=== PATIENT | female | born 1985 | race Caucasian/White ===

== ENCOUNTER 2018-08-31 06:00 | Inpatient (IN) ==
[2018-08-31] MEDS ORDERED: *HR* Nalbuphine 10 MG/ML AMPUL IVP PRN (06:17)
[2018-08-31] MEDS ORDERED: Naloxone 0.4 MG/ML INJ IVP PRN ×2 (06:17→21:40)
[2018-08-31] MEDS ORDERED: Famotidine 20 MG/2 ML VIAL IVP PRN (06:17)
[2018-08-31] MEDS ORDERED: Lidocaine 1% 20 ML MDV INFILT PRN (06:17)
[2018-08-31] MEDS ORDERED: Metoclopramide 10 MG/2 ML VIAL IVP PRN ×3 (06:17→21:40)
[2018-08-31] MEDS ORDERED: Ondansetron 4 MG/2 ML VIAL IVP PRN ×3 (06:17→21:40)
[2018-08-31] MEDS ORDERED: Oxytocin 20 units/ LR 1000 mL 20 UNIT/1,000 ML BAG IVC SCH ×5 (06:30→21:40)
[2018-08-31] MEDS ORDERED: Penicillin G Potassium 5,000,000 UNIT in 0.9 % Sodium Chloride Mini Bag 100 ML IVPB ONE (06:35)
[2018-08-31 06:45] LABS: Basophils % 0.3 %; Eosinophils # 0.1 K/mcL (0.0-0.6); Eosinophils % 1.2 %; Hematocrit 39.5 % (35.3-44.9); Hemoglobin 13.2 g/dL (11.5-15.4); Immature Granulocytes % 0.7 % (0-4); Lymphocytes # 1.8 K/mcL (0.6-4.6); Lymphocytes % 17.7 %; Mean Corpuscular HGB Conc 33.4 g/dL (31.6-35.5); Mean Corpuscular Hemoglobin 29.4 pg (28.0-33.3); Monocytes # 0.7 K/mcL (0.0-1.3); Monocytes % 6.5 %; Neutrophils # 7.7 K/mcL (1.6-8.9); Platelet Count 247 K/mcL (140-400); Red Blood Count 4.49 M/mcL (3.82-4.97); Red Cell Distribution Width 14.1 % (11.5-14.5); Segmented Neutrophils % 73.6 %
[2018-08-31 06:54] LABS: Amphetamine Screen,Urine Negative ng/mL (Cutoff=1000); Barbiturate Screen,Urine Negative ng/mL (Cutoff=200)
[2018-08-31] MEDS: Ringers Solution, Lactated 1,000 ML IVC SCH ×2 (06:54→11:46)
[2018-08-31 06:55] LABS: Cannabinoid Screen,Urine Negative ng/mL (Cutoff = 50); Cocaine Screen,Urine Negative ng/mL (Cutoff= 300); Opiate Screen,Urine Negative ng/mL (Cutoff=300); Phencyclidine Screen,Urine Negative ng/mL (Cutoff=25)
--- NOTE | 2018-08-31 07:13 | OB Labor Progress Note ---
Date of Encounter: 08/31/18 Time of Encounter: 07:11 Labor Progress Note - Subjective Subjective: Pt denies complaints. - Cervix Cervix: 2-3/70/-2 - Heart Tones Heart Tones: Category II, Prolonged deceleration noted while pt supine for santa balloon placement. - Maize Maize: rare UC - Interventions Interventions: Santa balloon placed in cervix using sterile technique. Balloon inflated with 60ml sterile water. Pt tolerated well. - Plan Physician notified: Yes Physician notified details: Dr. Camarillo notified of SVE, santa placement, and prolonged deceleration Plan: Pitocin with santa for induction. Epidural when requested. Anticipate .
[2018-08-31] MEDS ORDERED: Epidural Premix (fent/bupiv) 110 ML EP ONE (10:52)
[2018-08-31] MEDS ORDERED: *HR* Ropivacaine/PF 0.2% 20 ML VIAL ONE (10:53)
[2018-08-31] MEDS ORDERED: *HR* FentaNYL (PF) 100 MCG/2 ML VIAL ONE (10:53)
[2018-08-31] MEDS ORDERED: Lidocaine -MPF 1% 5 ML AMPUL ONE (10:53)
[2018-08-31] MEDS ORDERED: Penicillin G Potassium 2,500,000 UNIT in 0.9 % Sodium Chloride 100 ML IVPB SCH (11:00)
[2018-08-31] MEDS ORDERED: EPHEDrine 50 MG/ML VIAL ONE (11:33)
--- NOTE | 2018-08-31 11:41 | Anesthesia Evaluation PreOp ---
Date of Encounter: 08/31/18 Time of Encounter: 11:38 - Past History Planned Operation: trevon Cardiac History: Other (neurocardiogenic syncope) Pulmonary History: Asthma (Allergy induced asthma) RETAIL LOAN OFFICER History: Denies Any Significant HX Other Medical History: Denies Any Significant HX Anesthesia History: No Prior Anesthetic Complications, Past Anesthesia (nasal septum repair) : Yes (39 weeks, ) Alcohol Use: none Drug use: none Medications and Allergies Metformin HCl 500 mg PO DAILY 06/11/18 [History] Prenata Chewable Tablet 1 tab PO DAILY 06/11/18 [History] Prozac 80 mg PO DAILY 06/11/18 [History] Allergy/AdvReac Type Severity Reaction Status Date / Time No Known Allergies Allergy Verified 08/31/18 06:15 - Meds/Allergy Pre-op Review Medications Reviewed: Yes Allergies Reviewed: Yes Beta Blockers on Current Med List: No Anesthesia Results - Labs 08/31/18 06:30 Anesthesia Exam No Known Allergies Allergy (Verified 08/31/18 06:15) Height: 69 Weight: 115 - HEENT Pupil (Motor): Pupils equal Mallampati: I Teeth: Normal Oral Opening: Greater than 3 - RETAIL LOAN OFFICER LOC: Oriented RETAIL LOAN OFFICER Motor: Normal RUE, Normal LUE, Normal RLE, Normal LLE, Normal Face [employer]AIL LO[employer] OFFICER Sensory: Normal: RUE, LUE, RLE, LLE, Face - Cardiac Rhythm: Regular Murmur: None JVD: No Carotid Bruit: No - Pulmonary Breath Sounds: bilateral Clear Respiratory Effort: Symmetrical Anesthesia Assess/Plan ASA Score: 2 Level of consciousness: Cooperative Anesthetic Plan: Epidural Monitoring Plan: Standard Monitors
--- NOTE | 2018-08-31 11:52 | Anesthesia Procedures ---
<Waylon Wills - Last Filed: 08/31/18 11:47> Date of Encounter: 08/31/18 Time of Encounter: 11:47 Procedures: Anesthesia - Epidural/Spinal Patient ID/Chart reviewed: Yes Patient examined: Yes OB Eval: Gestational age: 39 weeks OB Eval: : 3 OB Eval: Hx Para: 1 OB Eval: Contractions: Non-stressed pattern Consent Obtained: Yes Supplemental Oxygen: None/Room Air Site Prep: Aseptic Technique Patient position: upright Local Anesthetic: Lidocaine 1% Amount of Local Anesthetic used: 2 Touhy Needle Gauge: 18 Touhy Needle Depth (cm): 6 Catheter Depth at Skin (cm): 12 Test Dose (1.5% Lido + Epi): Volume given (mls): 3 Test Dose Result: Negative Loading Dose: Fentanyl (mcg): 100 Loading Dose: Other: 2ml fentanyl, 3ml nss Loading Dose Administered: Thru Touhy Needle Infusion Med: 0.125% Bupivacaine w/ 2 mcg/ml Fentanyl Infusion Rate (mls/hr): [address]: Tegaderm Interspace Used: L3-L4 Loss of Resistance (ESA): Yes Blood: No CSF: No Paresthesia: No Procedure: Strict asepsis, one attempt side lying at L3-4. Good ESA, negative parasthesias, negative heme, negative CSF. Catheter to 12cm and secured at skin. Called back 10 min after placing epidural to treat BP 104/68 with intense nausea and light headedness. 10mg ephedrine given ivp. Symptoms immediatly resolved and BP 144/87 <Ricci Jessica - Last Filed: 08/31/18 20:54> Date of Encounter: 08/31/18
[2018-08-31] MEDS ORDERED: *HR* FentaNYL (PF) 100 MCG/2 ML VIAL EP ONE (11:53)
[2018-08-31] MEDS ORDERED: Epidural Premix (fent/bupiv) 110 ML EP SCH (12:00)
--- NOTE | 2018-08-31 12:19 | OB/GYN History & Physical ---
Date of Encounter: 08/31/18 Time of Encounter: 12:19 Assessment and Plan (1) Labor established Current visit: Yes Status: Acute Induction of labor at term Labs- CBC, hold to collect Pain management with epidural CEFM Anticipate (2) Positive GBS test Current visit: Yes Status: Acute (3) Intrauterine Current visit: Yes Status: Acute (4) 39 weeks gestation of Current visit: Yes Status: Acute Prophylaxis penicillin History of Present Illness Chief complaint: Labor Induction HPI: Ms. Baum is a 33 year old female arrives at 39 weeks to L&D for induction. The patient has had no complications during . GBS positive. Patient with medical History of Neurogenic syncope. Denies any complaints at this time. Past Med Surg Social Fam HX - Past Medical History Attestation: Yes The following information was validated with the patient. Source: patient Medical history: other Additional medical history: cardiac issue-neurocardiogenic syncope Psychiatric history: depression, other - Past Surgical History Surgical History: non-contributory Additional surgical history: cyst removal to wrist, deviated septum repair - Social History Smoking Status: Never smoker Smokeless Tobacco Status: No Alcohol use: none Drug use: none - Family History Mother Living Status: Still Living Hx Family Cardiac Disorders: Yes (pulmonary embolisms, DVT,) Hx Family Cancer: Yes (melanoma) Hx Family Medical Disorders: Yes (clotting discorder) Obstetrical History - Pregnancies : 3 Para: 1 Term: 1 Ab's: 1 Livin - History/Complications History/Complications: GBS positive Medications and Allergies Metformin HCl 500 mg PO DAILY 06/11/18 [History] Prenata Chewable Tablet 1 tab PO DAILY 06/11/18 [History] Prozac 80 mg PO DAILY 06/11/18 [History] Allergy/AdvReac Type Severity Reaction Status Date / Time No Known Allergies Allergy Verified 08/31/18 06:15 Review of System OB All systems PM: reviewed and no additional remarkable complaints except as stated - Cardiovascular Cardiovascular: no chest pain - Respiratory Respiratory: no dyspnea - Genitourinary Genitourinary: no pelvic pain, no urinary frequency, no urinary urgency, no vaginal discharge - Neurological Nerological: no dizziness, no headache(s), no loss of vision, no syncope Exam - Constitutional Constitutional: well developed, well nourished, no acute distress, average body habitus - HEENT HEENT: PERRL - Neck Neck exam: full ROM - Lungs Respiratory exam: CTAB - Cardiovascular Cardiovascular exam: RRR - Abdomen Abdomen: Present: gravid, non tender - Extremities Extremities exam: full ROM - Vulva Vulva: bilateral: normal - Vagina Vagina: Present: normal moisture. Absent: discharge - Cervix Dilation: 5 Effacement: 80 Station: -2 - Uterus Uterus exam: Present: enlarged (appropriate for gestational age), normal contour - Anus/Rectum Anus/Rectum: Present: normal perianal skin Results Result Diagrams: 08/31/18 06:30 Abnormal lab results U Benzodiazepines Scrn Positive ng/mL (Mdyagw=[id number]) H 08/31/18 06:40 All other labs normal. - VTE Reasons for not Prescribing Prophylaxis: Treatment not Indicated - Low risk for VTE
--- NOTE | 2018-08-31 13:02 | Event Note ---
Date of Encounter: 08/31/18 Time of Encounter: 12:59 S/P epidural placement fetus experienced several variable and other decelerations despite interventions of position change, bolus, and pitocin off. Persistent category II tracing. Dr. Camarillo notified and orders to AROM and place internal monitors given. AROM with thick meconium fluid performed and IUPC and FSE placed. Dr. Camarillo notified that there was no improvement in tracing. States she is en route to assume care.
[2018-08-31] MEDS ORDERED: 0.9 % Sodium Chloride 500 ML ONE ×2 (13:09→14:59)
--- NOTE | 2018-08-31 13:40 | Event Note ---
Date of Encounter: 08/31/18 Time of Encounter: 13:36 Called to see patient at bedside. Marked variability appreciated on EFM, AROM'd by Mana DA SILVA for thick meconium. Denies si/sx of chorioamnionitis. Internal monitors were placed, and there was improvement in the patients tracing. EFM still tachy to the 180s, variability but unable to appreciate isolated deceleration(S) or acceleration(s). Audibly active fetus. Amnioinfusion was initiated 500cc bolus. Patient was rechecked and found to be a parous 8cm/80/-1. Thick meconium was appreciated with fluid. Appreciated head descend and I manually dilated cervix. Significant improvement in patient EFM. Baseline change from 170bpm to 130bpm with accels and mod variability. Will continue with EFM and internal monitors. Will restart IV pitocin when able. MD ADDISON
[2018-08-31] MEDS ORDERED: Metoclopramide 10 MG/2 ML VIAL IVP ONE (15:53)
[2018-08-31] MEDS ORDERED: Oxytocin 20 units/ LR 1000 mL 20 UNIT/1,000 ML BAG IVC ONE (15:53)
[2018-08-31] MEDS ORDERED: CeFAZolin Premix DUPLEX 2,000 MG/50 ML BAG IVPB ONE (15:53)
[2018-08-31] MEDS ORDERED: Ringers Solution, Lactated 1,000 ML IVC SCH ×2 (16:00→17:45)
--- NOTE | 2018-08-31 16:01 | Event Note ---
Date of Encounter: 08/31/18 Time of Encounter: 15:58 At bedside with patient. Unchanged station, failure to descend. . NRFWB, moderate variability. Patient with thick meconium in the setting of Cat II tracing. COntinues to have intermittent and more frequent prolonged deceleration(s). position appreciated to be OP, unable to rotate due to station. Have attempted position changing using peanut ball as well as amnioinfusion for variable decels, unfortunately still unable to adequately make change with reassurance by EFM. Internals have been placed post-AROM. Consent signed with patient for pLTCS, aware of the risks of surgery. Discussed wound care. patient for pLTCS at term for intolerance of labor, failure to descend, and malposition. MD ADDISON
[2018-08-31] MEDS ORDERED: *HR* Phenylephrine 10 MG/ML VIAL ONE (16:08)
[2018-08-31] MEDS ORDERED: *HR* Oxytocin 10 UNIT/ML VIAL IM ONE ×2 (16:11→17:08)
[2018-08-31] MEDS ORDERED: Chloroprocaine/PF 20 ML VIAL INFILT ONE ×2 (16:14→16:41)
[2018-08-31] MEDS ORDERED: *HR* Morphine Sulfate/PF 10 MG/10 ML AMPUL ONE (16:42)
[2018-08-31] MEDS ORDERED: Azithromycin 500 MG in D5% in Water 250 ML IVPB ONE (17:00)
[2018-08-31] MEDS ORDERED: Ringers Solution, Lactated 1,000 ML ONE (17:08)
[2018-08-31] MEDS ORDERED: Ondansetron 4 MG/2 ML VIAL ONE (17:11)
[2018-08-31] MEDS ORDERED: Ibuprofen 600 MG TABLET PO PRN (17:32)
[2018-08-31] MEDS ORDERED: Simethicone 80 MG TAB.CHEW PO PRN ×2 (17:32→21:40)
[2018-08-31] MEDS ORDERED: Acetaminophen 325 MG TABLET PO PRN (17:32)
[2018-08-31] MEDS ORDERED: *HR* OxyCODONE/APAP 5/325 TABLET PO PRN ×2 (17:32→23:26)
[2018-08-31] MEDS ORDERED: Sennosides 8.6 MG TABLET PO PRN ×2 (17:32→21:40)
[2018-08-31] MEDS ORDERED: *HR* Morphine 2 MG/ML SYRINGE IVP PRN ×2 (17:42→21:40)
[2018-08-31] MEDS ORDERED: Ibuprofen 400 MG TABLET PO PRN (17:42)
[2018-08-31] MEDS ORDERED: *HR* HYDROmorphone (PF) 1 MG/ML SYRINGE IVP PRN ×2 (17:42→21:40)
[2018-08-31] MEDS ORDERED: Acetaminophen IV 1,000 MG/100 ML INFUS..BTL IVPB ONE (17:51)
--- NOTE | 2018-08-31 18:05 | OB/GYN Procedure Note ---
Section - Date of procedure: 08/31/18 Preop diagnosis: arrest of descent, category 2 FHT tracing Post-op diagnosis: same Procedure: section, primary low transverse Surgeon: Mana Camarillo Quantitated Blood Loss: 400 Was there an environmental assistant present: Yes Infrastructure Developer: Ricci Jessica Anesthesiologist: Eleazar Parisi Semiautomatic Stitcher Operator: Waylon Wills Anesthesia Type: Spinal section complications: none Disposition: L&D Recovery Room Specimens: Placenta, Cord segment, Cord blood, Cord gasses - (s) A Infant Delivery Date: 08/31/18 Delivery Time: 16:40 Presentation: vertex Gender: Male Viability: Viable Pounds: 8 Ounces: 7 Gram Weight: 3.83 kg at 1 minute: 4 at 5 minutes: 9 Shoulder Dystocia: not encountered Specimens collected: cord blood, venous cord gases Placenta: complete extraction Cord: nuchal cord - Narrative Narrative: 33yo female at 39+0wks who was scheduled for eIOL at term. Uncomplicated . Patient was induced with santa/pitocin. CAT II tracing thorughout her induction was appreciated. AROM for thick meconium, internal monitors were placed. Unfortunately, CAT II tracing with prolonged decelerations were appreciated and IV pitocin was turned off and appropriate measures were taken for resuscitation. The patient remained at 8cm/90%/-1, without ability to restart pitocin, and no adequate change in station. After another prolonged deceleration, the patient was consented for a pLTCS. All risks were discussed with patient prior to being taken to OR. THe patient was prepped and draped in the usual, sterile fashion. Sign in and time out was performed. CSE was found to be adequate. Pfannenstiel skin incision was performed and taken down to the level of the fascia. We scored the midline and extended each side using pineda scissors. We grasped the fascia superiorly then inferiorly and dissected the fascia from the rectus. We then bluntly the rectus muscles and entered the abdomen, bluntly entering the peritoneum. Bilaterally with equal force we extended the peritoneal cavity for adequate visibility of the uterus. We placed a bladder blade, and a rich superiorly. The bladder reflection was appreciated but a bladder flap was not performed. Hysterotomy was made using a scalpel. We extended the hysterotomy bluntly superiorly and inferiorly. The occiput was brought to the level of the hysterotomy and with adequate fundal pressure, we delivered the infant. One nuchal was appreciated and reduced prior to delivery. Baby was delivered and immediately clamped/cut and handed off to the warmer. A cord segment was obtained and cord blood was tubed and sent to pathology with gases. Placenta was removed with manual extraction. Held, not sent to pathology. The uterus was then exteriorly and cleared of debris. Ringed forceps were then placed on either angles, as the hysterotomy was closed in two layers using 0-vicryl. Uterus was first closed using running locked suture, and then imbricated with a second suture. The uterus was then placed back in the abdomen and we examined the fascia superiorly and inferiorly prior to closing t he fascia using stratafix. We then irrigated and closed subcutaneous fat using plain cut on 3-0 suture. Hemostasis was appreciated, 3-0 vicryl stitch was then used to close skin in a running fashion. Counts were correct x3. EBL: 400mL UOP: 200mL IVF: see anesthesia Weight: 8#7oz Male Apgars: 4/9 I was presents for the entirety of the procedure. Dr. Jessica was present as the environmental assistant. Mana Camarillo MD
--- NOTE | 2018-08-31 23:31 | Anesthesia Evaluation Post Op ---
Date of Encounter: 08/31/18 Time of Encounter: 23:31 - Vital Signs Vital Signs: Vital Signs/O2 Sat, Most Current Temp Pulse Resp BP Pulse Ox 98.6 F 100 18 113/68 96 08/31/18 22:50 08/31/18 22:50 08/31/18 22:50 08/31/18 22:50 08/31/18 22:50 - Lungs Lungs: Clear Ascult./Percussion - Airway Airway: Non-obstructed - Cardiovascular Regular Rate - Mental Status Mental Status: Alert & Oriented, Answers Appropriately - Pain Pain Scale: 2 - Nausea Vomiting Nausea Vomiting: Not Present - Hydration Hydration: Tolerates oral liquids, Bob catheter - Discharge PostOp Status: Transfer Patient to floor
[2018-09-01] MEDS: Ibuprofen 600 MG TABLET PO PRN ×3 (04:10→17:01)
[2018-09-01 06:57] LABS: Basophils % 0.2 %; Eosinophils % 0.2 %; Hematocrit 36.7 % (35.3-44.9); Hemoglobin 12.1 g/dL (11.5-15.4); Immature Granulocytes % 0.5 % (0-4); Lymphocytes # 1.1 K/mcL (0.6-4.6); Lymphocytes % 5.8 %; Mean Corpuscular Hemoglobin 29.4 pg (28.0-33.3); Mean Corpuscular Volume 89.3 fL (83.0-100.0); Mean Platelet Volume 10.2 fL (9.4-12.4); Monocytes # 1.1 K/mcL (0.0-1.3); Monocytes % 5.7 %; Neutrophils # 16.7 K/mcL (1.6-8.9); Platelet Count 192 K/mcL (140-400); Red Blood Count 4.11 M/mcL (3.82-4.97); Red Cell Distribution Width 14.1 % (11.5-14.5); Segmented Neutrophils % 87.6 %
[2018-09-01] MEDS: Prenatal Vit/FA 1 EACH TABLET PO SCH (08:02)
[2018-09-01] MEDS ORDERED: Prenatal Vit/FA 1 EACH TABLET PO SCH (09:00)
--- NOTE | 2018-09-01 09:00 | OB/GYN Progress Note ---
Date of Encounter: 09/01/18 Time of Encounter: 08:58 - Assessment and Plan (1) S/P section Current Visit: Yes Status: Acute Stable POD#1 Continue with plan of care . (2) Positive GBS test Current Visit: Yes Status: Acute Received prophylactic antibiotics antepartum. Subjective - Subjective Principal diagnosis: Section Interval history: Patient doing well. Urinating and passing gas. Ambulating without difficulty. Pain well-controlled. Tolerating PO intake. No complaints at this time. Patient reports: appetite normal, voiding normally, pain well controlled, ambulating normally, no nauseated : in NICU Objective - Vital Signs Latest vital signs: Vital Signs Temp Pulse Resp BP Pulse Ox 09/01/18 07:30 98.3 F 83 18 106/65 98 09/01/18 04:00 98.6 F 94 18 111/71 97 08/31/18 22:50 98.6 F 100 18 113/68 96 08/31/18 21:50 98.4 F 93 18 115/65 95 08/31/18 20:50 98.5 F 88 16 98/65 97 08/31/18 20:20 99.4 F 99 18 113/49 97 08/31/18 19:50 94 18 120/62 Intake and Output 08/31/18 09/01/18 09/01/18 23:59 07:59 15:59 Intake Total 240 / 240 Output Total 1000 / 1000 620 / 620 Balance -1000 / -1000 -380 / -380 Intake: Oral 240 / 240 Output: Catheter 1000 / 1000 620 / 620 Other: Weight 113.1 kg - Exam Lungs: bilateral: normal (Effort normal, without distress) Chest: Normal S1, Normal S2 Extremities: Present: normal, other (Patellar and achilles DTR +2 bilaterally without clonus. ). Absent: tenderness, edema Abdomen: Present: soft Incision: Present: dry, dressed (Per attending physician to keep dressing in place for 24 hours.) Uterus: Present: normal Comments: at umbilicus - Labs Labs: Laboratory Results - last 24 hr 09/01/18 06:35 WBC 19.1 H D RBC 4.11 Hgb 12.1 Hct 36.7 MCV 89.3 MCH 29.4 MCHC 33.0 RDW 14.1 Plt Count 192 MPV 10.2 Immature Gran % 0.5 Seg Neutrophils % 87.6 Lymphocytes % 5.8 Monocytes % 5.7 Eosinophils % 0.2 Basophils % 0.2 Neutrophils # 16.7 H Lymphocytes # 1.1 Monocytes # 1.1 Eosinophils # 0.0 Basophils # 0.0 - Allied health notes Allied health notes reviewed: nursing
[2018-09-01 16:02] LABS: Benzodiazepines Screen,Urine Negative ng/mL (Cutoff=300)
[2018-09-02] MEDS: Ibuprofen 600 MG TABLET PO PRN ×3 (00:12→13:02)
[2018-09-02 08:21] VITALS: BP 106/62
[2018-09-02] MEDS: Prenatal Vit/FA 1 EACH TABLET PO SCH (08:28)
--- NOTE | 2018-09-02 10:32 | Discharge Summary ---
Date of Encounter: 09/02/18 Time of Encounter: 12:06 - Discharge Diagnosis (1) Breast feeding status of mother Priority: Secondary Status: Acute (2) History of depression Priority: Secondary Status: Acute Comments: Pt reports h/o depression, currently on Prozac. Reports good mood. Discussed s/sx of depression and resources. (3) S/P section Priority: Primary Status: Acute Comments: Pt meeting post-op day 2 milestones. +flatus, denies BM. Reports pain is managed by Ibuprofen. She is pumping and continues to work with baby direct . Discussed control options and safe spacing. Pt denies control at this time. Anticipate discharge home today. Mom plans to guest until infant is discharged from [facility]. - Discharge Medications Prescriptions: RX: Ibuprofen [Motrin] 600 mg PO Q6HR PRN #60 tablet PRN Reason: Cramping RX: OxyCODONE/APAP 5/325 [Percocet 5/325 MG] 1 each PO Q6HR PRN 7 Days #28 tablet PRN Reason: Pain Azithromycin [Zithromax] 500 mg PO DAILY #10 tablet RX: Breast Pump [BREAST PUMP] 1 each .ROUTE AD #1 each Cephalexin [Keflex] 500 mg PO BID #10 capsule RX: Docusate [Colace] 100 mg PO BID #60 capsule Home Medications: Prenata Chewable Tablet 1 tab PO DAILY 06/11/18 [History] Prozac 80 mg PO DAILY 06/11/18 [History] Azithromycin [Zithromax] 500 mg PO DAILY #10 tablet 09/02/18 [Rx] Cephalexin [Keflex] 500 mg PO BID #10 capsule 09/02/18 [Rx] RX: Breast Pump [BREAST PUMP] 1 each .ROUTE AD #1 each 09/02/18 [Rx] RX: Docusate [Colace] 100 mg PO BID #60 capsule 09/02/18 [Rx] RX: Ibuprofen [Motrin] 600 mg PO Q6HR PRN #60 tablet 09/02/18 [Rx] RX: OxyCODONE/APAP 5/325 [Percocet 5/325 MG] 1 each PO Q6HR PRN 7 Days #28 tablet 09/02/18 [Rx] RX: Simethicone [Gas-X] 80 mg PO TID PRN tab.chew 09/02/18 [Rx] Allergies/Adverse Reactions: Allergy/AdvReac Type Severity Reaction Status Date / Time No Known Allergies Allergy Verified 08/31/18 06:15 Data Procedures and tests throughout hospitalization: Laboratory Tests 08/31/18 08/31/18 09/01/18 06:30 06:40 06:35 WBC 10.4 19.1 H D RBC 4.49 4.11 Hgb 13.2 12.1 Hct 39.5 36.7 MCV 88.0 89.3 MCH 29.4 29.4 MCHC 33.4 33.0 RDW 14.1 14.1 Plt Count 247 192 MPV 10.0 10.2 Immature Gran % 0.7 0.5 Seg Neutrophils % 73.6 87.6 Lymphocytes % 17.7 5.8 Monocytes % 6.5 5.7 Eosinophils % 1.2 0.2 Basophils % 0.3 0.2 Neutrophils # 7.7 16.7 H Lymphocytes # 1.8 1.1 Monocytes # 0.7 1.1 Eosinophils # 0.1 0.0 Basophils # 0.0 0.0 Urine Opiates Screen Negative Ur Barbiturates Screen Negative Ur Phencyclidine Scrn Negative Ur Amphetamines Screen Negative U Benzodiazepines Scrn Negative Urine Cocaine Screen Negative U Marijuana (THC) Screen Negative Ur Drug Screen Interp See Below Labs on day of discharge: Labs from last 24 hours 08/31/18 06:40 U Benzodiazepines Scrn Negative Date of admission: 08/31/18 06:09 Primary care physician: Maxim Kwok MD Consults: 09/01/18 09:09 Consult to [place] Counselor (W&C) [CONS] Routine Reason For Exam: Reason for SW Consult: + tox screen Discharging clinician: Maritza Greenfield Anticipated date of discharge: 09/02/18 - Patient Status Disposition: Home, Self-Care Condition: Good Overall status at discharge: patient is progressing back to baseline - Discharge Instructions Follow Up With: Maxim Kwok MD [Primary Care Provider] - Mana Camarillo MD [Partnered Physician] - - Diet and Activity Activity: increase activity as tolerated Diet: advance to your usual diet Hospital Course Reason for admission: induction of labor, IUP at term Delivery: section Episiotomy: none Laceration: none Other procedures: none complications: none Discharge diagnosis: IUP at term delivered [place] baby: male Hospital course: - Date of procedure: 08/31/18 Preop diagnosis: arrest of descent, category 2 FHT tracing Post-op diagnosis: same Procedure: section, primary low transverse Surgeon: Mnaa Camarillo Quantitated Blood Loss: 400 Was there an data control assistant present: Yes Mill Controller: Ricci Jessica Anesthesiologist: Eleazar Parisi Concrete Rubber: Waylon Wills Anesthesia Type: Spinal section complications: none Disposition: L&D Recovery Room Specimens: Placenta, Cord segment, Cord blood, Cord gasses - Infant (s) Infant A Infant Delivery Date: 08/31/18 Delivery Time: 16:40 Presentation: vertex Gender: Male Viability: Viable Pounds: 8 Ounces: 7 Gram Weight: 3.83 kg at 1 minute: 4 at 5 minutes: 9 Shoulder Dystocia: not encountered Specimens collected: cord blood, venous cord gases Placenta: complete extraction Cord: nuchal cord Time Attestation: Total time spent providing and/or coordinating discharge services: - VTE Reasons for not Prescribing Prophylaxis: Treatment not Indicated - Low risk for VTE Documentation of Mechanical Device: Intermittent pneumatic compression device Exam - Constitutional Vitals: Temp Pulse Resp BP Pulse Ox 98.0 F 80 16 106/62 97 09/02/18 07:30 09/02/18 07:30 09/02/18 07:30 09/02/18 07:30 09/01/18 20:00 General appearance IM: A&O X 3, pleasant, no acute distress - Respiratory Respiratory exam: Present: CTAB - Cardiovascular Cardiovascular exam IM: Present: RRR - GI/Abdominal GI/Abdominal exam IM: normal bowel sounds Incision: normal, dry, intact Additional comments: steri-strips in place - Uterine Tone: Firm Uterus Position: 1 Finger Below Umbilicus, Midline - Extremities Exam Extremities exam IM: Present: normal capillary refill, pedal edema (1+). Absent: calf tenderness, tenderness - Neurological Exam Neurological exam: alert, oriented X3, reflexes normal
== END 2018-09-02 13:25 | disposition home or self-care (01) | DRG 788 ==
LOC: 1NENULAB 06:09 → 1NENUOBS 20:03
PROVIDERS: ADMIT Student in an Organized Health Care Education/Training Program; ATTEND Student in an Organized Health Care Education/Training Program

== ENCOUNTER 2020-02-06 00:16 | Observation (INO) ==
[2020-02-05 23:23] LABS: Bacteria,Urine Few per hpf (None-Few); Bilirubin,Urine Negative (Negative); Blood,Urine Negative (Negative); Calcium Oxalate Crystals,Urine Present; Clarity,Urine Clear (Clear); Color,Urine Yellow (Yellow); Glucose,Urine (UA) Normal (Normal); Ketones,Urine Trace mg/dL (Negative); Leukocyte Esterase,Urine Negative (Negative); Mucus,Urine Few per lpf (None-Few); Nitrite,Urine Negative (Negative); Protein,Urine 50 mg/dL (Neg-Trace); RBC,Urine 0-3 per hpf (0-3); Specific Gravity,Urine > 1.030 (1.010-1.025); Squamous Epithelial Cell,Urine Few per hpf (None-Few)
[~2020-02-06 00:16] MED LIST: Ringers Solution, Lactated 1,000 ML IVC ONE; Ringers Solution, Lactated 1,000 ML IVC SCH; Ringers Solution, Lactated 1,000 ML ONE
== END 2020-02-06 01:55 | disposition home or self-care (01) ==
LOC: 1NENULAB
PROVIDERS: ADMIT Student in an Organized Health Care Education/Training Program; ATTEND Student in an Organized Health Care Education/Training Program

== ENCOUNTER 2020-02-14 05:45 | Inpatient (IN) ==
[2020-02-14] MEDS ORDERED: Metoclopramide 10 MG/2 ML VIAL IVP ONE (05:55)
[2020-02-14] MEDS ORDERED: Famotidine 20 MG/2 ML VIAL IVP ONE (05:55)
[2020-02-14] MEDS ORDERED: Naloxone 0.4 MG/ML INJ IVP PRN (05:55)
[2020-02-14] MEDS ORDERED: CeFAZolin Syr 3,000MG/30 ML 3,000 MG/30 ML SYRINGE IVPB ONE (05:55)
[2020-02-14] MEDS: Ringers Solution, Lactated 1,000 ML IVC ONE ×2 (06:47→07:26)
[2020-02-14 07:12] LABS: Basophils % 0.2 %; Eosinophils # 0.1 K/mcL (0.0-0.6); Eosinophils % 1.4 %; Hematocrit 38.2 % (35.3-44.9); Hemoglobin 12.8 g/dL (11.5-15.4); Lymphocytes # 1.7 K/mcL (0.6-4.6); Mean Corpuscular HGB Conc 33.5 g/dL (31.6-35.5); Mean Corpuscular Hemoglobin 29.8 pg (28.0-33.3); Mean Corpuscular Volume 88.8 fL (83.0-100.0); Mean Platelet Volume 10.4 fL (9.4-12.4); Monocytes # 0.9 K/mcL (0.0-1.3); Monocytes % 9.7 %; Neutrophils # 6.5 K/mcL (1.6-8.9); Platelet Count 249 K/mcL (140-400); Red Cell Distribution Width 14.6 % (11.5-14.5); Segmented Neutrophils % 69.7 %; White Blood Count 9.4 K/mcL (4.3-11.1)
[2020-02-14] MEDS ORDERED: EPINEPHrine 1 MG/ML VIAL ONE (07:19)
[2020-02-14] MEDS ORDERED: EPHEDrine 50 MG/ML VIAL ONE (07:19)
[2020-02-14] MEDS ORDERED: *HR* FentaNYL (PF) 100 MCG/2 ML VIAL ONE (07:19)
[2020-02-14] MEDS ORDERED: *HR* Morphine Sulfate/PF 10 MG/10 ML AMPUL ONE (07:19)
[2020-02-14] MEDS ORDERED: Dexamethasone 4 MG/ML VIAL ONE (07:20)
[2020-02-14] MEDS ORDERED: Ondansetron 4 MG/2 ML VIAL ONE (07:20)
[2020-02-14] MEDS ORDERED: Ringers Solution, Lactated 1,000 ML ONE ×2 (07:21→07:23)
[2020-02-14] MEDS ORDERED: Acetaminophen IV 1,000 MG/100 ML INFUS..BTL ONE (07:23)
[2020-02-14] MEDS ORDERED: Ketorolac 30 MG/ML VIAL ONE (07:27)
[2020-02-14] MEDS ORDERED: *HR* Oxytocin 10 UNIT/ML VIAL IM ONE (07:27)
[2020-02-14] MEDS ORDERED: *HR* Midazolam HCl 2 MG/2 ML VIAL ONE (07:29)
[2020-02-14] MEDS ORDERED: *HR* Promethazine 25 MG/ML VIAL IVP PRN (08:37)
[2020-02-14] MEDS ORDERED: *HR* HYDROmorphone PF 0.5 MG/0.5 ML SYRINGE IVP PRN (08:37)
[2020-02-14 09:04] LABS: Amphetamine Screen,Urine Negative ng/mL (Cutoff=1000); Barbiturate Screen,Urine Negative ng/mL (Cutoff=200); Benzodiazepines Screen,Urine Negative ng/mL (Cutoff=200); Cannabinoid Screen,Urine Negative ng/mL (Cutoff = 50); Cocaine Screen,Urine Negative ng/mL (Cutoff= 300); Opiate Screen,Urine Negative ng/mL (Cutoff=300); Phencyclidine Screen,Urine Negative ng/mL (Cutoff=25)
[2020-02-14] MEDS ORDERED: Oxytocin 20 units/ LR 1000 mL 20 UNIT/1,000 ML BAG IVC ONE (10:32)
[2020-02-14] MEDS: Oxytocin 20 units/ LR 1000 mL 20 UNIT/1,000 ML BAG IVC SCH ×2 (11:45→20:59)
[2020-02-14] MEDS ORDERED: Rho Immune Globulin 1,500 UNIT SYRINGE IM ONE (12:12)
[2020-02-14] MEDS ORDERED: Simethicone 80 MG TAB.CHEW PO PRN (12:12)
[2020-02-14] MEDS ORDERED: Metoclopramide 10 MG/2 ML VIAL IVP PRN (12:12)
[2020-02-14] MEDS ORDERED: Sennosides 8.6 MG TABLET PO PRN (12:12)
[2020-02-14] MEDS ORDERED: *HR* OxyCODONE/APAP 5/325 TABLET PO PRN (12:12)
[2020-02-14] MEDS ORDERED: Ondansetron 4 MG/2 ML VIAL IVP PRN (12:12)
[2020-02-14] MEDS ORDERED: *HR* OxyCODONE Immed Rel 5 MG TABLET PO PRN (13:02)
[2020-02-14] MEDS: Ibuprofen 600 MG TABLET PO PRN ×2 (15:32→21:05)
[2020-02-14] MEDS: Ringers Solution, Lactated 1,000 ML IVC SCH (20:59)
[2020-02-14] MEDS ORDERED: FLUoxetine 20 MG CAPSULE PO SCH (21:00)
[2020-02-15] MEDS: Ibuprofen 600 MG TABLET PO PRN ×2 (04:20→10:07)
[2020-02-15] MEDS: Ringers Solution, Lactated 1,000 ML IVC SCH (04:36)
[2020-02-15] MEDS: Oxytocin 20 units/ LR 1000 mL 20 UNIT/1,000 ML BAG IVC SCH (04:36)
[2020-02-15 08:40] VITALS: BP 103/70
[2020-02-15 08:46] LABS: Basophils % 0.3 %; Eosinophils # 0.1 K/mcL (0.0-0.6); Eosinophils % 0.7 %; Hematocrit 33.5 % (35.3-44.9); Immature Granulocytes % 0.8 % (0-4); Lymphocytes # 1.6 K/mcL (0.6-4.6); Mean Corpuscular HGB Conc 31.9 g/dL (31.6-35.5); Mean Corpuscular Hemoglobin 29.2 pg (28.0-33.3); Mean Corpuscular Volume 91.5 fL (83.0-100.0); Mean Platelet Volume 10.4 fL (9.4-12.4); Monocytes # 1.1 K/mcL (0.0-1.3); Monocytes % 9.8 %; Neutrophils # 8.4 K/mcL (1.6-8.9); Platelet Count 172 K/mcL (140-400); Red Blood Count 3.66 M/mcL (3.82-4.97); Red Cell Distribution Width 14.8 % (11.5-14.5); Segmented Neutrophils % 74.4 %; White Blood Count 11.3 K/mcL (4.3-11.1)
[2020-02-15] MEDS ORDERED: Prenatal Vit/FA 1 EACH TABLET PO SCH (09:00)
[2020-02-15 09:05] LABS: Hemoglobin 10.7 g/dL (11.5-15.4)
== END 2020-02-15 12:30 | disposition home or self-care (01) | DRG 785 ==
LOC: 1NENULAB 05:51 → 1NENUOBS 11:47
PROVIDERS: ADMIT Student in an Organized Health Care Education/Training Program; ATTEND Student in an Organized Health Care Education/Training Program

== ENCOUNTER 2020-03-05 12:43 | Observation (INO) ==
[2020-03-05] MEDS ORDERED: 0.9 % Sodium Chloride 1,000 ML IVC ONE (13:04)
[2020-03-05] MEDS ORDERED: Isovue-370 500 ML BOTTLE IVP ONE (13:04)
[2020-03-05 13:44] LABS: Basophils % 0.3 %; Eosinophils # 0.3 K/mcL (0.0-0.6); Eosinophils % 3.4 %; Hematocrit 44.5 % (35.3-44.9); Hemoglobin 14.4 g/dL (11.5-15.4); Immature Granulocytes % 0.3 % (0-4); Lymphocytes # 1.7 K/mcL (0.6-4.6); Lymphocytes % 22.7 %; Mean Corpuscular HGB Conc 32.4 g/dL (31.6-35.5); Mean Corpuscular Hemoglobin 29.2 pg (28.0-33.3); Mean Corpuscular Volume 90.3 fL (83.0-100.0); Mean Platelet Volume 9.7 fL (9.4-12.4); Monocytes # 0.6 K/mcL (0.0-1.3); Monocytes % 7.5 %; Neutrophils # 4.9 K/mcL (1.6-8.9); Platelet Count 304 K/mcL (140-400); Red Blood Count 4.93 M/mcL (3.82-4.97); Red Cell Distribution Width 13.2 % (11.5-14.5); Segmented Neutrophils % 65.8 %; White Blood Count 7.4 K/mcL (4.3-11.1)
[2020-03-05 14:06] LABS: BUN/Creatinine Ratio 16 (6-26); Blood Urea Nitrogen 11 mg/dL (6-20); Calcium 9.3 mg/dL (8.6-10.3); Carbon Dioxide 24 mEq/L (23-29); Chloride 105 mEq/L (98-107); Glucose 96 mg/dL (70-105); Osmolality,Calculated 285 (280-300); Potassium 3.8 mEq/L (3.5-5.1); Sodium 138 mEq/L (136-145); eGFR For African Americans > 60 (> 60); eGFR For Non-African Americans > 60 (> 60)
[2020-03-05 14:07] LABS: Troponin I < 0.03 ng/mL (< 0.04)
[2020-03-05] MEDS ORDERED: *HR* Heparin 5,000 UNIT/ML VIAL IVP PRN ×2 (15:05)
[2020-03-05] MEDS ORDERED: *HR* Heparin 5,000 UNIT/ML VIAL IVP ONE (15:05)
[2020-03-05 15:29] LABS: Hematocrit 44.7 % (35.3-44.9); Hemoglobin 14.3 g/dL (11.5-15.4); Mean Corpuscular Hemoglobin 28.2 pg (28.0-33.3); Mean Corpuscular Volume 88.2 fL (83.0-100.0); Mean Platelet Volume 9.5 fL (9.4-12.4); Platelet Count 310 K/mcL (140-400); Red Blood Count 5.07 M/mcL (3.82-4.97); Red Cell Distribution Width 13.2 % (11.5-14.5); White Blood Count 7.6 K/mcL (4.3-11.1)
[2020-03-05] MEDS: Heparin 25,000 UNIT/250 ML D5W 25,000 UNIT/250 ML IV.SOLN IVC SCH (15:31)
[2020-03-05 15:36] LABS: Heparin anti-factor XA UFH < 0.04 IU/mL (0.30-0.70); Prothrombin Time 11.9 Seconds (9.4-12.1)
[2020-03-05] MEDS ORDERED: Naloxone 0.4 MG/ML INJ IVP PRN (15:58)
[2020-03-05] MEDS ORDERED: Ondansetron 4 MG/2 ML VIAL IVP PRN (15:58)
[2020-03-05 17:08] LABS: Adenovirus Not Detected (Not Detect); Bordetella Pertussis Not Detected (Not Detect); Chlamydophila pneumoniae Not Detected (Not Detect); Coronavirus 229E Not Detected (Not Detect); Coronavirus HKU1 Not Detected (Not Detect); Coronavirus NL63 Not Detected (Not Detect); Coronavirus OC43 Not Detected (Not Detect); Human Metapneumovirus Not Detected (Not Detect); Human Rhinovirus/Enterovirus Not Detected (Not Detect); Influenza A Subtype 2009 H1 Not Detected (Not Detect); Influenza B Not Detected (Not Detect); Mycoplasma pneumoniae Not Detected (Not Detect); Parainfluenza Virus 1 Not Detected (Not Detect); Parainfluenza Virus 2 Not Detected (Not Detect); Parainfluenza Virus 3 Not Detected (Not Detect); Parainfluenza Virus 4 Not Detected (Not Detect); Respiratory Syncytial Virus Not Detected (Not Detect)
[2020-03-05 17:09] LABS: SARS-CoV-2 Not Detected (Not Detect)
[2020-03-05] MEDS ORDERED: FLUoxetine 20 MG CAPSULE PO SCH (21:00)
[2020-03-06 04:29] LABS: Basophils % 0.4 %; Eosinophils # 0.4 K/mcL (0.0-0.6); Eosinophils % 4.7 %; Hematocrit 44.6 % (35.3-44.9); Immature Granulocytes % 0.4 % (0-4); Lymphocytes # 2.3 K/mcL (0.6-4.6); Lymphocytes % 30.1 %; Mean Corpuscular HGB Conc 31.4 g/dL (31.6-35.5); Mean Corpuscular Hemoglobin 28.2 pg (28.0-33.3); Mean Corpuscular Volume 89.7 fL (83.0-100.0); Mean Platelet Volume 9.6 fL (9.4-12.4); Monocytes # 0.5 K/mcL (0.0-1.3); Monocytes % 6.5 %; Neutrophils # 4.3 K/mcL (1.6-8.9); Platelet Count 284 K/mcL (140-400); Red Blood Count 4.97 M/mcL (3.82-4.97); Red Cell Distribution Width 13.2 % (11.5-14.5); Segmented Neutrophils % 57.9 %; White Blood Count 7.5 K/mcL (4.3-11.1)
[2020-03-06 04:54] LABS: BUN/Creatinine Ratio 15 (6-26); Blood Urea Nitrogen 11 mg/dL (6-20); Carbon Dioxide 22 mEq/L (23-29); Chloride 104 mEq/L (98-107); Glucose 89 mg/dL (70-105); Magnesium 1.9 mg/dL (1.6-2.6); Osmolality,Calculated 283 (280-300); Potassium 3.8 mEq/L (3.5-5.1); Sodium 137 mEq/L (136-145); eGFR For African Americans > 60 (> 60); eGFR For Non-African Americans > 60 (> 60)
[2020-03-06 06:58] VITALS: BP 128/83
[2020-03-06] MEDS: Heparin 25,000 UNIT/250 ML D5W 25,000 UNIT/250 ML IV.SOLN IVC SCH (08:04)
[2020-03-06] MEDS ORDERED: Prenatal Vit/FA 1 EACH TABLET PO SCH (09:00)
[2020-03-06] MEDS ORDERED: *HR* Rivaroxaban 15 MG TABLET PO SCH (09:30)
== END 2020-03-06 10:05 | disposition home or self-care (01) ==
LOC: 3ANU 12:43 → EMEROOARM 12:43 → SUATTDRO 17:11 → 3ANU 18:00
PROVIDERS: ADMIT Family Medicine; ATTEND Internal Medicine

== ENCOUNTER 2020-03-07 13:27 | Observation (INO) ==
[2020-03-07] MEDS ORDERED: 0.9 % Sodium Chloride 500 ML IVC ONE (13:38)
[2020-03-07] MEDS ORDERED: Isovue-370 500 ML BOTTLE IVP ONE (13:39)
[2020-03-07 14:15] LABS: Basophils % 0.3 %; Eosinophils # 0.3 K/mcL (0.0-0.6); Eosinophils % 2.9 %; Hematocrit 45.2 % (35.3-44.9); Hemoglobin 14.5 g/dL (11.5-15.4); Immature Granulocytes % 0.5 % (0-4); Lymphocytes # 1.9 K/mcL (0.6-4.6); Lymphocytes % 19.6 %; Mean Corpuscular HGB Conc 32.1 g/dL (31.6-35.5); Mean Corpuscular Hemoglobin 28.2 pg (28.0-33.3); Mean Corpuscular Volume 87.9 fL (83.0-100.0); Mean Platelet Volume 9.6 fL (9.4-12.4); Monocytes # 0.7 K/mcL (0.0-1.3); Monocytes % 7.2 %; Neutrophils # 6.8 K/mcL (1.6-8.9); Platelet Count 359 K/mcL (140-400); Red Blood Count 5.14 M/mcL (3.82-4.97); Segmented Neutrophils % 69.5 %; White Blood Count 9.8 K/mcL (4.3-11.1)
[2020-03-07 14:18] LABS: INR 1.4; Prothrombin Time 15.8 Seconds (9.4-12.1)
[2020-03-07 14:21] LABS: Activated Partial Thrombo Time 41.9 Seconds (26.0-36.0)
[2020-03-07 14:48] LABS: Alanine Aminotransferase 14 Units/L (7-52); Albumin 4.2 g/dL (3.5-5.7); Albumin/Globulin Ratio 1.4 (1.1-2.2); Alkaline Phosphatase 85 Units/L (34-104); Aspartate Amino Transferase 13 Units/L (13-39); BUN/Creatinine Ratio 17 (6-26); Bilirubin,Direct 0.1 mg/dL (0.0-0.2); Bilirubin,Indirect 0.4 mg/dL (0.0-1.0); Bilirubin,Total 0.5 mg/dL (0.3-1.0); Blood Urea Nitrogen 12 mg/dL (6-20); Calcium 9.7 mg/dL (8.6-10.3); Carbon Dioxide 22 mEq/L (23-29); Chloride 102 mEq/L (98-107); Globulin 3.1 g/dL (2.4-3.5); Glucose 109 mg/dL (70-105); Osmolality,Calculated 284 (280-300); Potassium 3.8 mEq/L (3.5-5.1); Sodium 137 mEq/L (136-145); Total Protein 7.3 g/dL (6.4-8.9); Troponin I < 0.03 ng/mL (< 0.04); eGFR For African Americans > 60 (> 60); eGFR For Non-African Americans > 60 (> 60)
[2020-03-07 16:06] LABS: Lactate Dehydrogenase 177 Units/L (140-271)
[2020-03-07 16:45] LABS: Bacteria,Urine Few per hpf (None-Few); Bilirubin,Urine Negative (Negative); Blood,Urine Large (Negative); Clarity,Urine Clear (Clear); Color,Urine Light-Yellow (Yellow); Glucose,Urine (UA) Normal (Normal); Ketones,Urine Negative (Negative); Leukocyte Esterase,Urine Moderate (Negative); Nitrite,Urine Negative (Negative); Protein,Urine Negative (Neg-Trace); RBC,Urine 50-100 per hpf (0-3); Specific Gravity,Urine > 1.030 (1.010-1.025); Squamous Epithelial Cell,Urine Few per hpf (None-Few); Urobilinogen,Urine Normal (Normal)
[2020-03-07 16:46] LABS: Uric Acid 6.5 mg/dL (2.3-7.6)
[2020-03-07 16:53] LABS: Protein/Creatinine Ratio,Urine 0.16 mg/mg (0.00-0.20)
[2020-03-07] MEDS ORDERED: Naloxone 0.4 MG/ML INJ IVP PRN (17:33)
[2020-03-07] MEDS ORDERED: Ondansetron 4 MG/2 ML VIAL IVP PRN (17:33)
[2020-03-07] MEDS ORDERED: *HR* Heparin 5,000 UNIT/ML VIAL IVP PRN ×2 (17:34)
[2020-03-07] MEDS ORDERED: *HR* Heparin 5,000 UNIT/ML VIAL IVP ONE (17:34)
[2020-03-07] MEDS ORDERED: *HR* HYDROcodone/Acet 5/325 mg TABLET PO PRN (17:36)
[2020-03-07] MEDS ORDERED: Acetaminophen 325 MG TABLET PO PRN (17:36)
[2020-03-07] MEDS ORDERED: Perflutren Lipid Microsphere 1.3 ML in 0.9 % Sodium Chloride 8.7 ML IVP PRN (17:38)
[2020-03-07] MEDS ORDERED: Heparin 25,000 UNIT/250 ML D5W 25,000 UNIT/250 ML IV.SOLN IVC SCH (17:45)
[2020-03-07 18:29] LABS: Heparin anti-factor XA UFH 0.35 IU/mL (0.30-0.70)
[2020-03-07 18:55] LABS: Activated Partial Thrombo Time 39.4 Seconds (26.0-36.0)
[2020-03-07] MEDS: Heparin 25,000 UNIT/250 ML D5W 25,000 UNIT/250 ML IV.SOLN IVC SCH (20:58)
[2020-03-07] MEDS: FLUoxetine 20 MG CAPSULE PO SCH (21:11)
[2020-03-08 05:02] LABS: Basophils % 0.3 %; Eosinophils # 0.3 K/mcL (0.0-0.6); Eosinophils % 2.9 %; Hematocrit 45.8 % (35.3-44.9); Hemoglobin 14.3 g/dL (11.5-15.4); Immature Granulocytes % 0.5 % (0-4); Lymphocytes # 2.7 K/mcL (0.6-4.6); Lymphocytes % 28.6 %; Mean Corpuscular HGB Conc 31.2 g/dL (31.6-35.5); Mean Corpuscular Volume 89.6 fL (83.0-100.0); Mean Platelet Volume 9.9 fL (9.4-12.4); Monocytes # 0.6 K/mcL (0.0-1.3); Monocytes % 6.3 %; Neutrophils # 5.7 K/mcL (1.6-8.9); Platelet Count 328 K/mcL (140-400); Red Blood Count 5.11 M/mcL (3.82-4.97); Red Cell Distribution Width 13.2 % (11.5-14.5); Segmented Neutrophils % 61.4 %; White Blood Count 9.4 K/mcL (4.3-11.1)
[2020-03-08 05:25] LABS: BUN/Creatinine Ratio 15 (6-26); Blood Urea Nitrogen 11 mg/dL (6-20); Calcium 9.5 mg/dL (8.6-10.3); Carbon Dioxide 23 mEq/L (23-29); Chloride 102 mEq/L (98-107); Glucose 87 mg/dL (70-105); Magnesium 1.9 mg/dL (1.6-2.6); Osmolality,Calculated 285 (280-300); Potassium 3.7 mEq/L (3.5-5.1); Sodium 138 mEq/L (136-145); eGFR For African Americans > 60 (> 60); eGFR For Non-African Americans > 60 (> 60)
[2020-03-08] MEDS: Heparin 25,000 UNIT/250 ML D5W 25,000 UNIT/250 ML IV.SOLN IVC SCH (11:41)
[2020-03-08] MEDS: FLUoxetine 20 MG CAPSULE PO SCH (20:27)
[2020-03-09] MEDS: Heparin 25,000 UNIT/250 ML D5W 25,000 UNIT/250 ML IV.SOLN IVC SCH (04:19)
[2020-03-09 04:35] LABS: Hematocrit 43.1 % (35.3-44.9)
[2020-03-09 04:53] LABS: BUN/Creatinine Ratio 22 (6-26); Blood Urea Nitrogen 16 mg/dL (6-20); Calcium 9.2 mg/dL (8.6-10.3); Carbon Dioxide 22 mEq/L (23-29); Chloride 104 mEq/L (98-107); Glucose 95 mg/dL (70-105); Osmolality,Calculated 283 (280-300); Sodium 136 mEq/L (136-145); eGFR For African Americans > 60 (> 60); eGFR For Non-African Americans > 60 (> 60)
[2020-03-09 07:29] VITALS: BP 130/84
== END 2020-03-09 12:03 | disposition home or self-care (01) ==
LOC: 3ANU 13:27 → EMEROOARM 13:27 → SUATTDRO 17:37 → 3ANU 18:09
PROVIDERS: ADMIT Family Medicine; ATTEND Internal Medicine